=== PATIENT | male | born 1965 | race Caucasian/White ===

== ENCOUNTER 2019-11-01 23:54 | Inpatient (IN) | payer MEDICAID ==
[~2019-11-01] VITALS: Ht 180.3 cm; Wt 103.9 kg
[2019-11-02 00:02] VITALS: BP 108/54
--- NOTE | 2019-11-02 00:03 | NUR ---
PT AMBULATED TO BED 4 WITH STEADY GAIT.
--- NOTE | 2019-11-02 00:04 | NUR ---
EKG BEING PERFORMED AT BEDSIDE BY EMT.
--- NOTE | 2019-11-02 00:05 | NUR ---
PT 54 Y/O MALE BIB SELF FOR C/O L ARM TINGLING FOLLOWED BY CHEST PRESSURE X 45 MIN. PT AAOX4. RESPIRATIONS ARE EVEN AND UNLABORED. PT ADMITS TO "FEELING SWEATY, AND NAUSEOUS. PT HAD X 1 EPISODE OF VOMITING X 1 HOUR AGO. ABD IS SOFT, ROUND, AND NON TENDER. PT ADMITS TO L SIDED CHEST PAIN. PAIN IS CONTINOUS, PRESSURE, AND RADIATED TO LEFT ARM. PT ON MONTIOR. VSS. MEDHX: "IRREGULAR HEART BEAT." ALLERGIES: TORADOL
--- NOTE | 2019-11-02 00:12 | NUR ---
Pt is aaox4, ambulaotory with hx of stent x 13 yrs ago per pt. Pt report to Rocio PAYNE. Ekg done and result shown to Dr Lopez.
[2019-11-02] MEDS ORDERED: NACL 0.9% 500 ML IV ONE (00:15)
--- NOTE | 2019-11-02 00:16 | NUR ---
Dr. Lopez examining patient.
[2019-11-02] MEDS ORDERED: MORPHINE SULFATE 2 MG/ML SYR IVP ONE ×2 (00:20→01:25)
[2019-11-02] MEDS ORDERED: ONDANSETRON 4 MG/2 ML VIAL IVP ONE (00:20)
[2019-11-02] MEDS ORDERED: NITROGLYCERIN 2% 1 GM PKT TP ONE (00:20)
--- NOTE | 2019-11-02 00:35 | NUR ---
X-Ray at bedside.
--- NOTE | 2019-11-02 00:40 | NUR ---
IV PLACED IN L FOOT. IV SITE PATEN. NO REDNESS, SWELLING, OR C/O PAIN AT SITE.
--- NOTE | 2019-11-02 00:41 | NUR ---
LABS COLLECTED AND GIVEN TO [facility].
[2019-11-02 00:44] LABS: BASOPHILS # (AUTO) 0.1 K/uL (0.00-0.22); BASOPHILS % (AUTO) 0.8 % (0.0-2.0); EOSINOPHILS # (AUTO) 0.1 K/uL (0-0.4); EOSINOPHILS % (AUTO) 1.4 % (0.0-4.0); HEMATOCRIT 43.2 % (36-52); HEMOGLOBIN 14.6 g/dL (12.0-18.0); LYMPHOCYTES # (AUTO) 1.4 K/uL (2.0-11.5); LYMPHOCYTES % (AUTO) 17.2 % (20.5-51.1); MEAN CORPUSCULAR HEMOGLOBIN 33 pg (27-31); MEAN CORPUSCULAR HGB CONC 34 g/dL (33-37); MEAN CORPUSCULAR VOLUME 96.6 fL (80-94); MONOCYTES # (AUTO) 0.5 K/uL (0.8-1.0); MONOCYTES % (AUTO) 6.6 % (1.7-9.3); NEUTROPHILS # (AUTO) 5.9 K/uL (1.8-7.7); PLATELET COUNT (AUTO) 281 K/uL (140-450); RED BLOOD CELL COUNT(AUTO) 4.47 MIL/uL (4.20-6.10); RED CELL DISTRIBUTION WIDTH 13.4 % (11.6-13.7)
--- NOTE | 2019-11-02 00:45 | NUR ---
NS 0.9% 500ML GIVEN AT 100ML/HR. MORPHINE SULFATE 2MG GIVEN IVP. ZOFRAN 4 MG GIVEN IVP. NITRO 1G GIVEN TOPICALLY. PT O MONITOR. VSS. PT DENIES PAIN AT THIS TIME. PT REPORTS A DECREASE IN NUMBNESS IN L ARM. CMS INTACT. CAP REFILL <3.
[2019-11-02 00:57] LABS: ALBUMIN 3.9 g/dL (3.4-5.0); ANION GAP 14.9 (8-16); CARBON DIOXIDE 26.7 mmol/L (21-32); CREATININE 1.5 mg/dL (0.6-1.3); POTASSIUM 3.6 mmol/L (3.5-5.1); TOTAL BILIRUBIN 0.6 mg/dL (0.0-1.0)
[2019-11-02] MEDS ORDERED: ACETAMINOPHEN 325 MG TAB PO PRN (01:15)
[2019-11-02] MEDS ORDERED: DOCUSATE SODIUM 100 MG GELCAP PO PRN (01:15)
[2019-11-02] MEDS ORDERED: NITROGLYCERIN 0.4 MG TAB SL PRN (01:15)
[2019-11-02] MEDS ORDERED: HYDROcodone/APAP 5/325 MG 1 TAB TAB PO PRN (01:15)
[2019-11-02] MEDS ORDERED: ONDANSETRON 4 MG/2 ML VIAL IM/IVP PRN (01:15)
--- NOTE | 2019-11-02 01:20 | NUR ---
PT GAVE C/O 7/10 CHEST PAIN. ERMD MADE AWARE AND GAVE NEW ORDER.
[2019-11-02 01:30] LABS: PROTHROMBIN TIME 10.4 secs (10.8-13.4)
--- NOTE | 2019-11-02 01:32 | NUR ---
MORPHINE 2MG GIVEN IVP. IV SITE PATENT. NO REDNESS, SWELLING, OR C/O PAIN AT THIS TIME. PT ON MONITOR. VSS.
[2019-11-02] MEDS ORDERED: ATOR20TA PO (01:40)
--- NOTE | 2019-11-02 01:45 | NUR ---
PT STATES PAIN HAS REDUCED TO 0/10 CHEST PAIN. "I FEEL A LOT BETTER."
[2019-11-02 01:46] LABS: PHOSPHORUS 3.5 mg/dL (2.5-4.9); THYROID STIMULATING HORMONE 3.54 uIU/mL (0.34-3.74)
--- NOTE | 2019-11-02 01:50 | NUR ---
Patient will be admitted to care of . Admited to TELE. Will go to room 106B. Belongings list completed. Report to KIANNA PAYNE.
[2019-11-02 02:00] VITALS: BP 117/60
--- NOTE | 2019-11-02 02:05 | NUR ---
S/E BY DR. RUIZ - MADE NEW ORDER AND CARRIED OUT.
--- NOTE | 2019-11-02 02:10 | NUR ---
PHARMACIST CALL - QUESTIONING ABOUT ASPIRIN ORDERED BY CYRUS . THE PHARMACIST WANTS TO VERIFY THE ORDER BECAUSE PT IS ALLERGY TO KETOROLAC - WILL REFER TO DR. RUIZ.
--- NOTE | 2019-11-02 02:18 | NUR ---
BACK TO ROOM - NO S/S OF ACUTE DISTRESS NOTED AT THIS TIME. WILL CONT. TO MONITOR - REMINDS HIM FOR URINE COLLECTION- FOR U/A.- SPECIMEN PROVIDED - CALL LIGHT , URINAL WITHIN REACH.
--- NOTE | 2019-11-02 02:30 | NUR ---
REFER TO DR RUIZ ABOUT THE ASPIRIN ORDER - HE SAID HE AWARE PT IS ALLERGY TO KETOROLAC - HE SAID PROCEED THE ASPIRIN ORDERED.
--- NOTE | 2019-11-02 02:35 | NUR ---
STILL COMPLAINING OF CHEST PAIN - WILL MEDICATE ORDERED.
--- NOTE | 2019-11-02 02:50 | NUR ---
REFER TO PHARMACIST - I ASKING PHARMACIST IF SAFE TO GIVE NARCO TAB. IF PT GOT MORPHINE TIV AT 0131 - THE PHARMACIST SAID IT IS SAFE.
--- NOTE | 2019-11-02 02:53 | NUR ---
NARCO TAB Addendum: 11/02/19 at 0311 by Jenny Zamora RN NARCO TABLET GIVEN P.O ORDERED - WILL CONT. TO MONITOR
--- NOTE | 2019-11-02 03:05 | NUR ---
COLOR CONSULTANT BY CT STAFF -FOR HEAD CT SCAN.
[2019-11-02] MEDS: MORPHINE SULFATE 2 MG/ML SYR IVP PRN ×5 (04:50→21:16)
[2019-11-02] MEDS: NACL 0.9% 1,000 ML IV SCH ×2 (06:36→20:59)
--- NOTE | 2019-11-02 07:30 | NUR ---
RECEIVED PT. FROM PROGRAM TRAINER NURSE, SHELLIE. PT. IS ASLEEP AND IN BED. PT. IN ROOM AIR WITH O2 STAT OF 98%. IV IS ON THE LEFT THUMB 24G WITH NS RUNNING AT 60ML/HR. PT. IS ON CARDIAC DIET. NO SIGNS OF DISTRESS NOTED. FALL PRECAUTION INITIATED. REVIEWED PLAN OF CARE. CALL LIGHT WITHIN REACH. WILL CONTINUE TO MONITOR.
--- NOTE | 2019-11-02 07:43 | NUR ---
ENDORSED TO AM SHIFT - STABLE CONDITION.
[2019-11-02 08:00] VITALS: BP 118/67
--- NOTE | 2019-11-02 08:30 | NUR ---
MORNING MEDICATIONS GIVEN. PT. COMPLAINS OF PAIN 8/10 FROM CHEST PAIN. OFFERED NITROGLYCERIN BUT PT. PREFERS TO TAKE MORPHINE IVP. 1MG IVP MORPHINE GIVEN. BP 122/55, HR 78. NO SIGNS OF DISTRESS NOTED. WILL CONTINUE TO MONITOR.
[2019-11-02] MEDS: LISINOPRIL 5 MG TAB PO SCH (08:50)
[2019-11-02] MEDS: METOPROLOL 25 MG TAB PO SCH ×2 (08:50→20:59)
[2019-11-02] MEDS: ASPIRIN 81 MG TAB.CHEW PO SCH (08:51)
[2019-11-02] MEDS: ATORVASTATIN 20 MG TAB PO SCH (08:52)
[2019-11-02] MEDS ORDERED: ATORVASTATIN 20 MG TAB PO SCH (09:00)
--- NOTE | 2019-11-02 11:25 | NUR ---
DISCHARGE PLANNING: THIS IS A 54 Y/O MALE PATIENT FROM HOME, WHO CAME IN DUE TO CHEST PAIN AND LEFT SIDED WEAKNESS X2 HOURS. PAST MEDICAL HISTORY INCLUDE HLD AND ATRIAL FIBRILLATION. INITIAL DIAGNOSIS OF CHEST PAIN. CURRENT LABS INCLUDE WBC 8.0, H/H 14.6/43.2, NA/K 140/3.6, BUN/CEA 19/1.5 AND TROP 0.017 X2. ON HEPARIN SQ. CARDIO CONSULT IN PLACE. DC PLAN BACK TO HOME ONCE STABLE. Addendum: 11/03/19 at 1129 by Eveline Baez FOR HERNESTO SCAN AND PT EVAL TODAY. SEEN BY CARDIO - IF HERNESTO SCAN IS NEGATIVE, CAN BE DC'D HOME.
--- NOTE | 2019-11-02 12:56 | NUR ---
PT. COMPLAINS OF PAIN 8/10 FROM CHEST PAIN. WILL MEDICATE WITH MORPHINE 1MG IVP PRN.
[2019-11-02 13:09] VITALS: BP 105/63
--- NOTE | 2019-11-02 13:14 | NUR ---
Pipe Threading Machine Operator Note: Basic Screen: Yes High Risk DC Screen Cashion: ANNAMARIE REDMAN [place] Relationship: DAUGHTER Pre-Admission Living Arrangements: Lives with Other Prior ADL Independent Current Home Health Name/Tel: N/A Current DME/02 Name/Tel: N/A Current Hospice Name/Tel: N/A Current Dialysis Name/Tel: N/A Healthcare Decision Maker: Patient Advance Directive No Physician Orders for Life Sustaining Treatment Form Yes Information Taught: Advance Directive Person Taught: Patient Teaching Tools: Verbal Factors Affecting Learning: None Participation Level: Refused Evaluation: Verbalizes Understanding Needs Additional Education: No Discipline: Case Mgt/Social Svcs Tentative Discharge Plan/Destination: No Needs Identified Will require assistance post discharge: No Referred to A P Mechanic: No Tentative Discharge Plan Summary: Patient is a 54-year-old male admitted for chest pain. Patient has PMHX of HLD and atrial fibrillation. Patient was admitted from home where he lives with his daugther and grandchildren. SW met with patient at bedside to verify demographics. Patient provided phone number to his daughter Elle Nunez [phone] to add as his emergency contact. Patient stated that he is independent with all ADLs prior to his hospitalization and reports no history of mental health or substance abuse. No further needs identified. Signature: GLENIS Guillaume Date: Nov 02, 2019 Time: 13:13
--- NOTE | 2019-11-02 15:45 | NUR ---
[employer] TECH CALLED AND CONFIRMED DR. ALVAREZ ORDER OF STRESS TEST. REQUESTS FOR NPO AFTER MIDNIGHT, NO CAFFEINE AND NO BETA ALBINO MEDICATIONS GIVEN TO PATIENT. DR. ALVAREZ CONFIRMS REQUESTS AND PLANS TO DO PROCEDURE AT 11/03/2019 1200. WILL FOLLOW THROUGH.
[2019-11-02 16:00] VITALS: BP 106/51
--- NOTE | 2019-11-02 17:40 | NUR ---
PT. COMPLAINS OF CHEST PAIN WITH SCALE OF 8/10. WILL MEDICATE WITH MORPHINE 1MG IVP. BP 107/65, HR 71. NO SIGNS OF DISTRESS.
--- NOTE | 2019-11-02 19:20 | NUR ---
ENDORSED PT. TO CARDIOVASCULAR SURGICAL TECH NURSE FOR CONTINUITY OF CARE
--- NOTE | 2019-11-02 19:22 | NUR ---
RECEIVED PT SLEEPING, EASILY AROUSABLE, VITAL SIGNS STABLE, DENIES ANY PAIN, NO SOB NOTED, IVF INFUSING WELL, PLAN OF CARE DISCUSSED, FOR JAZLYN TOMORROW, INSTRUCTED NPO AFTER MIDNIGHT, SAFETY MEASURES IN PLACE, CALL LIGHT WITHIN REACH.
[2019-11-02 20:00] VITALS: BP 104/51
--- NOTE | 2019-11-02 21:00 | NUR ---
DUE MEDICATION ADMINISTERED, PT COMPLAINING OF CHEST PAIN, WILL MEDICATE PRN, VOIDED FREELY PER URINAL, SPECIMEN SENT TO LAB FOR TEST, ALL NEEDS ATTENDED.
[2019-11-02 21:22] LABS: APPEARANCE,URINE CLEAR (CLEAR); BILIRUBIN,URINE NEGATIVE (NEGATIVE); BLOOD, URINE TRACE-I (NEGATIVE); COLOR,URINE YELLOW (YELLOW); LEUKOCYTE ESTERASE ,URINE NEGATIVE (NEGATIVE); NITRITE, URINE NEGATIVE (NEGATIVE); UGLUCOSE NEGATIVE (NEGATIVE)
[2019-11-02 21:30] LABS: BARBITURATE, URINE NEGATIVE ng/ml (NEG <=200); BENZODIAZEPINE, URINE NEGATIVE ng/mL (NEG <=200); CANNABINOID, URINE NEGATIVE ng/mL (NEG <=50); COCAINE, URINE NEGATIVE ng/mL (NEG <=300); OPIATE, URINE POSITIVE ng/mL (NEG <=2000); PHENCYCLIDINE SCREEN,URINE NEGATIVE ng/mL (NEG <=25)
[2019-11-03] VITALS: BP 106/67
--- NOTE | 2019-11-03 | NUR ---
PT SLEEPING, EASILY AROUSABLE, VITAL SIGNS STABLE, DENIES ANY PAIN, IVF INFUSING WELL, ON NPO FOR LEXISCAN IN AM, CONTINUE TO MONITOR CLOSELY.
[2019-11-03] MEDS: MORPHINE SULFATE 2 MG/ML SYR IVP PRN ×3 (01:23→11:33)
--- NOTE | 2019-11-03 01:23 | NUR ---
PT COMPLAINING OF CHEST PAIN, MEDICATED PRN WITH MORPHINE IVP, MONITORED CLOSELY.
[2019-11-03] MEDS: NACL 0.9% 1,000 ML IV SCH ×2 (03:55→10:32)
[2019-11-03 04:00] VITALS: BP 122/67
--- NOTE | 2019-11-03 04:00 | NUR ---
PT SLEEPING, EASILY AROUSABLE, VITAL SIGNS STABLE, DENIES ANY PAIN, IVF INFUSING WELL, MONITORED CLOSELY.
--- NOTE | 2019-11-03 06:32 | NUR ---
PT COMPLAINING OF CHEST PAIN, MEDICATED PRN FOR PAIN, MAINTAINED ON NPO, MONITORED CLOSELY.
--- NOTE | 2019-11-03 07:09 | NUR ---
PT AWAKE, NO SIGNS OF DISTRESS, REPORT GIVEN TO KERRY ECHOLS FOR CONTINUITY OF CARE.
--- NOTE | 2019-11-03 07:10 | NUR ---
RECEIVED REPORT FROM NIGHT NURSE PT IS STABLE AND DENIES PAIN. PT IS NPO AFTER MIDNIGHT. SAFETY MEASURES IN PLACE AND CALL LIGHT WITHIN REACH. WILL CONTINUE TO MONITOR.
[2019-11-03 08:00] VITALS: BP 131/72
[2019-11-03] MEDS: ASPIRIN 81 MG TAB.CHEW PO SCH (08:21)
--- NOTE | 2019-11-03 08:26 | NUR ---
MEDICATIONS DUE GIVEN,PT IS STABLE AND COOPERATIVE. WILL CONTINUE TO MONITOR.
[2019-11-03] MEDS: METOPROLOL 25 MG TAB PO SCH ×2 (08:28→13:08)
[2019-11-03] MEDS: ATORVASTATIN 20 MG TAB PO SCH (08:28)
[2019-11-03] MEDS: LISINOPRIL 5 MG TAB PO SCH ×2 (08:29→13:08)
[2019-11-03] MEDS ORDERED: REGADENOSON 0.4 MG/5 ML SYR IV SCH (09:00)
--- NOTE | 2019-11-03 09:30 | NUR ---
PT WAS TAKEN FOR LEXISCAN STRESS TEST AT THIS MOMENT.
--- NOTE | 2019-11-03 11:45 | NUR ---
PT COMPLAINS OF CHEST PAIN , ASSESSED AND MEDICATIONS GIVEN.WILL CONTINUE TO MONITOR.
[2019-11-03 12:00] VITALS: BP 162/88
--- NOTE | 2019-11-03 12:30 | NUR ---
PT IS BACK FROM HIS ROOM AFTER THE LEXISCAN STRESS TEST. VITAL SIGNS CHECK BP 162/[address] OBRIEN AND BLOOD PRESSURE MEDICATIONS GIVEN. WILL CONTINUE TO MONITOR.
[2019-11-03] MEDS ORDERED: INFLUENZA VACCINE QUAD 0.5 ML SYR IMVAC PRN (15:25)
--- NOTE | 2019-11-03 17:00 | NUR ---
FLU VACCINE GIVEN TO PT ON THE LEFT ARM.
--- NOTE | 2019-11-03 17:05 | NUR ---
DISCHARGED INSTRUCTIONS PROVIDED TO THE PT AT BEDSIDE.EDUCATED PT TO FOLLOW UP WITH MD AFTER D/C, MEDICATION REGIMENS, SIDE EFFECT AND TO SEEK MEDICAL HELP IN CASE OF MEDICAL EMERGENCIES. ANSWERS ALL PT QUESTIONS AND PT VERBALIZES UNDERSTANDING. REMOVED ALL ID BANDS AND IV. IV INTACT AND COMPLETED. NO BLEEDING ON THE SITE.RETURNED ALL PT BELONGINGS, GIVEN FLU VACCINATION UPON DISCHARGED. RETURNED TELE MONITOR TO APPLICATION SYSTEMS ADMINISTRATOR. D/C PACKET PROVIDED AND ESCORTED PT TO THE FRONT LOBBY.PT IS STABLE.
== END 2019-11-03 17:05 | disposition home or self-care (01) | DRG 203 ==
LOC: MED 23:54 → MTU 11-02 01:17
PROVIDERS: ADMIT General Practice; ATTEND General Practice
DX: M94.0 Chondrocostal junction syndrome [Tietze] (principal); N17.0 Acute kidney failure with tubular necrosis; G90.8 Other disorders of autonomic nervous system; E66.9 Obesity, unspecified; I48.91 Unspecified atrial fibrillation; E78.5 Hyperlipidemia, unspecified; Z23 Encounter for immunization; Z68.32 Body mass index [BMI] 32.0-32.9, adult; Z71.3 Dietary counseling and surveillance; Z88.8 Allergy status to other drugs, medicaments and biological substances; Z80.0 Family history of malignant neoplasm of digestive organs; R00.0 Tachycardia, unspecified
CPT/HCPCS: 36415; 70450; 71045; 80053; 80305; 81003; 83036; 83690; 83735; 83880; 84100; 84443; 84484; 85025; 85610; 85730; 87081; 93005; 93880; 96361; 96374; 96375; 96376; 97110; 97112; 97116; 97161-GP; 97530; 99285; A9500; A9502; J1644; J2270; J2405; J2785; J7030; Q0092